=== PATIENT | female | born 1940 | race Caucasian/White ===

== ENCOUNTER → 2017-07-05 | Outpatient (CLI) | payer OTHER | LOC: FCPNEURO 21:30 | PROVIDERS: ATTEND Psychiatry & Neurology Sleep Medicine | DX: G47.33 Obstructive sleep apnea (adult) (pediatric) (principal); G47.37 Central sleep apnea in conditions classified elsewhere; G47.39 Other sleep apnea; G47.61 Periodic limb movement disorder ==

== ENCOUNTER 2017-07-11 02:29 | Observation (INO) | payer OTHER ==
[2017-07-11] MEDS ORDERED: NS 1,000 ML IV ONE (02:42)
--- NOTE | 2017-07-11 02:46 | EDPHY ---
H & P Time Seen by Provider: 07/11/17 02:42 HPI/ROS: HPI CHIEF COMPLAINT: Hypoglycemia HISTORY OF PRESENT ILLNESS: Patient is a 77-year-old female she is insulin- dependent diabetic she presents emergency room by EMS after her called 911 for unresponsiveness and critically low blood sugar of 31. The patient did feel that her blood sugar was getting low is a contacted her when her went evaluated her she was diaphoretic and appeared to be confused. He tried to give her oral glucose however blood sugar got too low and she was unresponsive. 911 was called 911 instructed him to do CPR he did a brief period of CPR. Less than 1 min. EMS arrived final blood sugar at 31. Gave dextrose to IV and she became more responsive. According to the she has had a ruptured appendix surgery at [facility] by Dr. Kelton gongora. She was released approximately 2 weeks ago. Over the past 2 weeks she has had difficulty controlling her blood sugar. She reports that she took approximately 30 units of long-acting insulin tonight however her blood sugar was only 120. She did eat dinner tonight. Patient reports she may have taken her long-acting insulin 20 units this morning as well as additional 30 units of long-acting insulin tonight for total of 50 some units of long-acting insulin. She reports her blood sugars have been running low recently in the 50s to 60s. It is now 245 in the morning she presents emergency room alert and oriented she states that earlier she felt fine but her blood sugar got too low. She denies any chest pain shortness of breath or headache. Mentating appropriately. Additionally the she reports that she did see her furniture mover helper today and has had some changes with her diabetic medication. She is unsure exactly what was changed. is at bedside. Past Medical History: Insulin-dependent diabetes Past Surgical History: Recent ruptured appendix requiring surgery at [facility] Social History: Denies drugs alcohol tobacco. Family History: Noncontributory ROS REVIEW OF SYSTEMS: A comprehensive 10 point review of systems is otherwise negative aside from elements mentioned in the history of present illness. Exam Constitutional appears well nontoxic no acute distress, triage nursing summary reviewed, vital signs reviewed, awake/alert. Eyes normal conjunctivae and sclera, EOMI, PERRLA. HENT normal inspection, atraumatic, moist mucus membranes, no epistaxis, neck supple/ no meningismus, no raccoon eyes. Respiratory clear to auscultation bilaterally, normal breath sounds, no respiratory distress, no wheezing. Cardiovascular rate normal, regular rhythm, no murmur, no edema, distal pulses normal. Gastrointestinal soft, non-tender, no rebound, no guarding, normal bowel sounds, no distension, no pulsatile mass. Genitourinary no CVA tenderness. Musculoskeletal no midline vertebral tenderness, full range of motion, no calf swelling, no tenderness of extremities, no meningismus, good pulses, neurovascularly intact. Skin pink, warm, & dry, no rash, skin atraumatic. Neurologic awake, alert and oriented x 3, AAOx3, moves all 4 extremities equally, motor intact, sensory intact, CN II-XII intact, normal cerebellar, normal vision, normal speech. Psychiatric normal mood/affect. Heme/Lymph/Immune no lymphadenopathy. Differential Diagnosis: Includes but is not limited to in a particular order severe hypoglycemia, dehydration, electrolyte disturbance, infection, hypoglycemia due to insulin overdose Medical Decision Making: Plan for this patient will monitor closely, q.1 hour Accu-Cheks glucose chest as she does take long-acting insulin. Her glucose upon arrival was 80. Re-evaluation: EKG interpretation by me on record in [employer] system. Impression time of EKG 2:52 a.m. Sinus rhythm rate of 60 no significant signs of cardiac arrhythmia or ST elevation ST depression or significant T-wave abnormalities 0435: Blood work has been reviewed. Her blood sugars have stable eyes while being in the emergency room after eating a large amount of calories. I do think it is beneficial to admit her today for observation to make sure blood sugar stays stable and also for further diabetic and glucose monitoring and education. Her as well as the patient would feel more comfortable being admitted today close observation to have further diabetes education and make sure she is on the correct insulin regimen. 0443: Spoke with Dr. Chapman who agrees to admit the patient. Blood sugars at this time have stabilized. Patient resting comfortably. Source: Patient, EMS Constitutional: Initial Vital Signs Temperature (C) 36.7 C 07/11/17 02:44 Heart Rate 62 07/11/17 02:44 Respiratory Rate 16 07/11/17 02:44 Blood Pressure 178/82 H 07/11/17 02:44 O2 Sat (%) 95 07/11/17 02:44 O2 Delivery Mode Room Air O2 (L/minute) 2 Allergies/Adverse Reactions: codeine Allergy (Verified 07/11/17 02:47) Sulfa (Sulfonamide Antibiotics) Allergy (Verified 07/11/17 02:47) Home Medications: Medication Instructions Recorded Acetaminophen [Tylenol 325mg (*)] 650 mg PO Q4HRS PRN tab 07/11/17 Calcitonin [Fortical (*)] 1 spray NASAL HS 07/11/17 Calcium Carbonate [Oyster Shell 500 mg PO DAILY 07/11/17 Calcium 500 mg (*)] Cholecalciferol Vit D3 [Vitamin D3 1,000 units PO DAILY 07/11/17 (*)] Docusate Sodium [Colace 100 MG (*)] 100 mg PO HS 07/11/17 Insulin Aspart [novoLOG] 10 unit SC TIDMEAL 07/11/17 Insulin Glargine [Lantus 100 30 units SC HS 07/11/17 UNITS/ML (*)] Losartan Potassium [Cozaar 50 mg 50 mg PO DAILY 07/11/17 (*)] Ondansetron Odt [Zofran Odt 4 mg 4 mg PO Q4 PRN 07/11/17 (*)] Simvastatin [Zocor] 40 mg PO DAILY 07/11/17 Venlafaxine Xr [Effexor Xr 75MG 75 mg PO DAILY 07/11/17 (*)] metFORMIN HCL [Glucophage 1000 mg] 1,000 mg PO DAILY 07/11/17 Medical Decision Making - Data Points Laboratory Results: Laboratory Results 07/11/17 02:45 07/11/17 02:45 Medications Given: Discontinued Medications Atorvastatin Calcium (Lipitor) 20 mg PO DAILY ON LICENSE OF [facility] Stop: 01/07/18 08:59 Last Admin: 07/11/17 10:33 Dose: 20 mg Calcium Carbonate (Oyster Shell Calcium) 500 mg PO DAILY ON LICENSE OF [facility] Stop: 01/07/18 08:59 Last Admin: 07/11/17 10:33 Dose: 500 mg Cholecalciferol (Vitamin D) 1,000 units PO DAILY ON LICENSE OF [facility] Stop: 01/07/18 08:59 Last Admin: 07/11/17 10:33 Dose: 1,000 units Enoxaparin Sodium (Lovenox) 40 mg SC DAILY ON LICENSE OF [facility] Stop: 01/07/18 08:59 Last Admin: 07/11/17 08:31 Dose: 40 mg Sodium Chloride (Ns) 1,000 mls @ 0 mls/hr IV EDNOW ONE; Wide Open PRN Reason: Protocol Stop: 07/11/17 02:43 Last Admin: 07/11/17 02:50 Dose: 1,000 mls Insulin Human Lispro (Humalog Lispro) 10 unit SC TIDMEAL ON LICENSE OF [facility] Stop: 01/07/18 11:59 Last Admin: 07/11/17 12:02 Dose: Not Given Losartan Potassium (Cozaar) 50 mg PO DAILY WILI Stop: 01/07/18 08:59 Last Admin: 07/11/17 10:34 Dose: 50 mg Metformin HCl (Glucophage) 1,000 mg PO DAILY WILI Stop: 01/07/18 08:59 Last Admin: 07/11/17 10:32 Dose: 1,000 mg Venlafaxine HCl (Effexor Xr) 75 mg PO DAILY ON LICENSE OF [facility] Stop: 01/07/18 08:59 Last Admin: 07/11/17 10:34 Dose: 75 mg Departure - Departure Disposition: [facility] Acute Clinical Impression: Hypoglycemia Condition: Good
[2017-07-11 02:53] LABS: PLATELET COUNT 269 10^3/uL (150-400)
--- NOTE | 2017-07-11 02:54 | CPEKG ---
Heart Rate: 60 RR Interval: 1000 P-R Interval: 156 QRSD Interval: 88 QT Interval: 484 QTC Interval: 484 P [place]: 14 QRS [place]: -5 T Wave [place]: 67 EKG Severity - BORDERLINE ECG - EKG Impression: SINUS RHYTHM EKG Impression: CONSIDER ANTERIOR INFARCT Electronically Signed By: Yee Madrigal 12-Jul-2017 12:30:45
[2017-07-11] MEDS ORDERED: ONDANSETRON DISINTEGRATING 4 MG TAB PO PRN ×2 (04:43→08:35)
[2017-07-11] MEDS ORDERED: ONDANSETRON 4 MG/2 ML VIAL IVP PRN (04:43)
[2017-07-11] MEDS ORDERED: ACETAMINOPHEN 325 MG TAB PO PRN (04:43)
[2017-07-11] MEDS ORDERED: D50W 25 GM/50 ML SYR IVP PRN (04:44)
--- NOTE | 2017-07-11 05:16 | PDGENHP ---
History and Physical - Chief Complaint Hypoglycemia - History of Present Illness 77 yo F w/ IDDM and HTN presents with hypoglycemia. Patient was discharged from the hospital a few weeks ago after an appendectomy. On discharge her insulin regimen was changed to insulin glargine 22 u qAM + sliding scale at meal times. She went to see her physician Dr. Luciano yesterday who changed her regimen to insulin glargine 30 u qHS + sliding scale. She ended up taking both long acting doses yesterday for a total of 52 units of glargine in addition to 24 units of aspart. noted her to be altered last night then unresponsive. She was found by EMS with critically low BG and brought to ED. History Information - Allergies/Home Medication List Allergies/Adverse Reactions: codeine Allergy (Verified 07/11/17 02:47) Sulfa (Sulfonamide Antibiotics) Allergy (Verified 07/11/17 02:47) Home Medications: Bisacodyl 07/11/17 [Last Taken Unknown] Lantus Solostar 10 07/11/17 [Last Taken Unknown] Losartan Potassium 50 DAILY 07/11/17 [Last Taken Unknown] Metformin 1000 mg DAILY 07/11/17 [Last Taken Unknown] Novolog Flexpen 4 TID 07/11/17 [Last Taken Unknown] Omeprazole 40 DAILY 07/11/17 [Last Taken Unknown] Ondansetron Odt 4 mg PRN PRN 07/11/17 [Last Taken Unknown] Simvastatin 40 mg DAILY 07/11/17 [Last Taken Unknown] Venlafaxine 75MG (*) 75 mg 07/11/17 [Last Taken Unknown] guaiFENesin 07/11/17 [Last Taken Unknown] I have personally reviewed and updated: family history, medical history - Past Medical History diabetes type 2, hypertension - Surgical History Reports: appendectomy - Family History Positive for: diabetes type II - Social History Smoking Status: Never smoked Review of Systems Review of Systems: ROS: 10pt was reviewed & negative except for what was stated in HPI & below Physical Exam Physical Exam: Temp Pulse Resp BP Pulse Ox 36.6 C 62 16 143/53 H 97 07/11/17 04:00 07/11/17 04:00 07/11/17 04:00 07/11/17 04:00 07/11/17 04:00 Constitutional: no apparent distress, not in pain, obese Eyes: PERRL, EOMI Ears, Nose, Mouth, Throat: moist mucous membranes, no oral mucosal ulcers Cardiovascular: regular rate and rhythym, no murmur, rub, or gallop Respiratory: no respiratory distress, clear to auscultation Gastrointestinal: normoactive bowel sounds, soft, non-tender abdomen, other ( Well healing surgical incision RLQ) Skin: warm, normal color Musculoskeletal: full muscle strength, no muscle tenderness Neurologic: AAOx3, CN II-XII Intact Lab Data & Imaging Review 07/11/17 02:45 07/11/17 02:45 WBC 5.80 10^3/uL (3.80-9.50) 07/11/17 02:45 RBC 4.34 10^6/uL (4.18-5.33) 07/11/17 02:45 Hgb 13.2 g/dL (12.6-16.3) 07/11/17 02:45 Hct 39.5 % (38.0-47.0) 07/11/17 02:45 MCV 91.0 fL (81.5-99.8) 07/11/17 02:45 MCH 30.4 pg (27.9-34.1) 07/11/17 02:45 MCHC 33.4 g/dL (32.4-36.7) 07/11/17 02:45 RDW 13.6 % (11.5-15.2) 07/11/17 02:45 Plt Count 269 10^3/uL (150-400) 07/11/17 02:45 MPV 10.0 fL (8.7-11.7) 07/11/17 02:45 Neut % (Auto) 38.8 % (39.3-74.2) L 07/11/17 02:45 Lymph % (Auto) 49.3 % (15.0-45.0) H 07/11/17 02:45 Weld % (Auto) 8.1 % (4.5-13.0) 07/11/17 02:45 Eos % (Auto) 3.1 % (0.6-7.6) 07/11/17 02:45 Baso % (Auto) 0.2 % (0.3-1.7) L 07/11/17 02:45 Nucleat RBC Rel Count 0.0 % (0.0-0.2) 07/11/17 02:45 Absolute Neuts (auto) 2.25 10^3/uL (1.70-6.50) 07/11/17 02:45 Absolute Lymphs (auto) 2.86 10^3/uL (1.00-3.00) 07/11/17 02:45 Absolute Monos (auto) 0.47 10^3/uL (0.30-0.80) 07/11/17 02:45 Absolute Eos (auto) 0.18 10^3/uL (0.03-0.40) 07/11/17 02:45 Absolute Basos (auto) 0.01 10^3/uL (0.02-0.10) L 07/11/17 02:45 Absolute Nucleated RBC 0.00 10^3/uL (0-0.01) 07/11/17 02:45 Immature Gran % 0.5 % (0.0-1.1) 07/11/17 02:45 Immature Gran # 0.03 10^3/uL (0.00-0.10) 07/11/17 02:45 Sodium 143 mEq/L (135-145) 07/11/17 02:45 Potassium 3.5 mEq/L (3.5-5.2) 07/11/17 02:45 Chloride 101 mEq/L (97-110) 07/11/17 02:45 Carbon Dioxide 29 mEq/l (22-31) 07/11/17 02:45 Anion Gap 13 mEq/L (8-16) 07/11/17 02:45 BUN 33 mg/dL (7-23) H 07/11/17 02:45 Creatinine 0.9 mg/dL (0.6-1.0) 07/11/17 02:45 Estimated GFR > 60 07/11/17 02:45 Glucose 62 mg/dL (70-100) L 07/11/17 02:45 POC Glucose 118 mg/dL (70-100) H 07/11/17 04:14 Calcium 9.8 mg/dL (8.5-10.4) 07/11/17 02:45 Total Bilirubin 0.3 mg/dL (0.1-1.4) 07/11/17 02:45 Conjugated Bilirubin 0.2 mg/dL (0.0-0.5) 07/11/17 02:45 Unconjugated Bilirubin 0.1 mg/dL (0.0-1.1) 07/11/17 02:45 AST 26 IU/L (14-46) 07/11/17 02:45 ALT 24 IU/L (9-52) 07/11/17 02:45 Alkaline Phosphatase 94 IU/L (38-126) 07/11/17 02:45 Troponin I < 0.012 ng/mL (0.000-0.034) 07/11/17 02:45 Total Protein 8.0 g/dL (6.3-8.2) 07/11/17 02:45 Albumin 4.0 g/dL (3.5-5.0) 07/11/17 02:45 Lipase 81 IU/L (23-300) 07/11/17 02:45 Assessment & Plan Assessment: 77 yo F w/ DM and HTN presents w/ hypoglycemia. Plan: 1. Hypoglycemia - 2/2 accidental insulin overdose. Her glargine dose was changed from qAM to qPM yesterday and she ended up taking both for a total of 52 units of insulin glargine. She also took 24 units of aspart (8u qAC x3). BG now >100 after glucose and food in the ED. - Admit for observation - q2H BG checks - Will hold further insulin until convincingly out of dangerous window noting high dose of long acting insulin 2. T2DM - Regimen changed to insulin glargine 30u qPM + SSI yesterday; will manage acutely as above. 3. HTN - Continue home meds 4. Recent appendectomy - Surgical scar in RLQ healing well. Diet - Regular Code - Full Ppx - LMWH Dispo - Admit under observation status
[2017-07-11] MEDS ORDERED: NON-FORMULARY NEW DRUG (Metformin Hcl [Glucophage 1000 Mg] 1,000 MG) PO SCH (09:00)
[2017-07-11] MEDS ORDERED: ENOXAPARIN 40 MG/0.4 ML SYR SC SCH (09:00)
[2017-07-11] MEDS ORDERED: metFORMIN HCL 500 MG TAB PO SCH (09:00)
[2017-07-11] MEDS ORDERED: CALCIUM CARBONATE 500 MG TAB PO SCH (09:00)
[2017-07-11] MEDS ORDERED: LOSARTAN POTASSIUM 50 MG TAB PO SCH (09:00)
[2017-07-11] MEDS ORDERED: ATORVASTATIN CALCIUM 20 MG TAB PO SCH (09:00)
[2017-07-11] MEDS ORDERED: NON-FORMULARY NEW DRUG (Simvastatin [Zocor] 40 MG) PO SCH (09:00)
[2017-07-11] MEDS ORDERED: VENLAFAXINE XR 75 MG CAP PO SCH (09:00)
[2017-07-11] MEDS ORDERED: CHOLECALCIFEROL VIT D3 1,000 UNITS TAB PO SCH (09:00)
[2017-07-11 11:45] VITALS: BP 138/61
[2017-07-11] MEDS ORDERED: INSULIN ASPART 10 UNIT SC SCH (12:00)
[2017-07-11] MEDS ORDERED: INSULIN LISPRO 100 UNIT/ML SC SCH (12:00)
--- NOTE | 2017-07-11 12:34 | ASMTCMCOM ---
CM Note CM Note Notes: Spoke w/RN, pt will dc home w/support of . CM available for any changes. DC Plan: Independent Date Signed: 07/11/2017 12:34 PM Electronically Signed By:Jacinda Wing RN
--- NOTE | 2017-07-11 13:49 | GDS ---
[f rep st] DISCHARGE SUMMARY DISCHARGE DIAGNOSES: 1. Hypoglycemia. 2. Type 2 diabetes. 3. Hypertension. PHYSICAL EXAM: GENERAL: The patient is alert. VITAL SIGNS: Afebrile at 37, pulse is 81, respirato ry rate is 16, blood pressure is 138/61. She is saturating 89% on room air. I have seen and evaluat ed the patient on the day of discharge. HOSPITAL COURSE: Patient is a very pleasant 77-year-old female who presented to the emergency room w ith complaints of acute confusion. After evaluation, it was noted the patient was hypoglycemic. Thi s was in the setting of accidental 2nd insulin dosing in 1 day. The patient's hypoglycemia has compl etely resolved. She has been recommended to continue her previously prescribed Lantus dose of 30 ton ight, as well as her a.c. dosing. She is tolerating a regular diet. She has no further complaints, and she will be discharged home. There are no pending studies. DISCHARGE MEDICATIONS: Please refer to EMR form. I have not adjusted the patient's previously presc ribed home medications. FOLLOWUP: will be with her primary care physician, Dr. Syed Whalen. /[id number]/MODL
[2017-07-11] MEDS ORDERED: DOCUSATE SODIUM 100 MG CAP PO SCH (21:00)
[2017-07-11] MEDS ORDERED: CALCITONIN 200 UNITS/SPRAY INH EACHNARE SCH (21:00)
[2017-07-11] MEDS ORDERED: NON-FORMULARY NEW DRUG (Insulin Glargine 30 UNITS) SC SCH (21:00)
[2017-07-11] MEDS ORDERED: INSULIN GLARGINE 100 UNITS/ML UNIT SC SCH (21:00)
== END 2017-07-11 12:55 | disposition home or self-care (01) ==
LOC: EDUNIT# → F3E 05:35
PROVIDERS: ADMIT Student in an Organized Health Care Education/Training Program; ATTEND Internal Medicine
DX: E11.649 Type 2 diabetes mellitus with hypoglycemia without coma (principal); T38.3X1A Poisoning by insulin and oral hypoglycemic [antidiabetic] drugs, accidental (unintentional), initial encounter; E16.0 Drug-induced hypoglycemia without coma; E86.9 Volume depletion, unspecified; I10 Essential (primary) hypertension; Z79.4 Long term (current) use of insulin; Z98.890 Other specified postprocedural states; Z88.2 Allergy status to sulfonamides
CPT/HCPCS: 93005; G0378; J1650; J1815

== ENCOUNTER → 2017-07-31 | Outpatient (CLI) | payer OTHER | LOC: FCPNEURO 20:00 | PROVIDERS: ATTEND Psychiatry & Neurology Sleep Medicine | DX: G47.33 Obstructive sleep apnea (adult) (pediatric) (principal); G47.39 Other sleep apnea ==